=== PATIENT | female | born 1945 | race Hispanic/Latino ===

== ENCOUNTER 2017-05-09 07:32 | Day surgery (SDC) | payer MEDICARE, OTHER ==
[2017-05-09 08:00] VITALS: BMI 25.6
[2017-05-09] MEDS ORDERED: Propofol 10 mg/ml Inj (20 ML) ONE (09:35)
--- NOTE | 2017-05-09 09:35 | CP.SDSHP ---
Same Day Surgery H & P - History Proposed Procedure: EGD Pre-Op Diagnosis: SEE NOTES - Previous Medical/Surgical History Endocrine/Metabolic: Thyroid Disease Misc: Other Pain: 4.Moderate Pain - Allergies Allergies: Allergies codeine Allergy (Verified 05/09/17 07:59) NAUSEA - Physical Exam General Appearance: N Vital Signs: Vital Signs 05/09/17 05/09/17 08:00 09:33 Temperature 97.2 F L 97.2 F L Pulse Rate 72 72 Respiratory 20 20 Rate Blood Pressure 149/78 149/78 O2 Sat by Pulse 96 96 Oximetry Mental Status: Alert & Oriented x3 Neuro: WNL Heart: WNL Lungs: WNL GI: Other - {Optional Preform as Required} Breast: WNL Abdomen: Other Rectal: Other Integument: WNL : WNL Ortho: Other ENT: WNL - Impression Pt. Evaluated Today:Candidate for Anesthesia & Procedure: Yes - Date & Time Time: 09:35 Short Stay Discharge - Short Stay Discharge Admitting Diagnosis/Reason for Visit: FUNCTIONAL DYSPEPSIA Disposition: HOME/ ROUTINE
[2017-05-09] MEDS ORDERED: Midazolam 2 MG/2 ML VIAL ONE (09:36)
[2017-05-09] MEDS ORDERED: Lactated Ringer's 500 ML IV SCH (09:45)
[2017-05-09] MEDS ORDERED: Belladonna-Phenobarbital PO ONE (09:50)
[2017-05-09] MEDS ORDERED: Pantoprazole 40 mg EC Tab PO ONE (09:55)
[2017-05-09 09:59] VITALS: RESP 12; TEMP 97.8
[2017-05-09 11:04] VITALS: BP 137/68; PULSE 56; O2SAT 97
== END 2017-05-09 11:02 | disposition home or self-care (01) ==
LOC: C.ENDO 07:32
PROVIDERS: ATTEND Specialist
DX: K21.0 Gastro-esophageal reflux disease with esophagitis (principal); K44.9 Diaphragmatic hernia without obstruction or gangrene
CPT/HCPCS: 43239; 88305; 88342; J2250; J2704; J7120

== ENCOUNTER 2018-07-27 09:52 | Day surgery (SDC) | payer MEDICARE, OTHER ==
[2018-07-27 10:30] VITALS: BMI 27.8
--- NOTE | 2018-07-27 11:05 | CP.SDSHP ---
Same Day Surgery H & P - History Proposed Procedure: EGD Pre-Op Diagnosis: SEE NOTES - Previous Medical/Surgical History Misc: Other Pain: 4.Moderate Pain - Allergies Allergies: Allergies codeine Allergy (Verified 07/27/18 10:30) NAUSEA - Physical Exam General Appearance: N Vital Signs: Vital Signs 07/27/18 10:15 Temperature 97.9 F Pulse Rate 80 Respiratory 20 Rate Blood Pressure 155/77 H O2 Sat by Pulse 98 Oximetry Mental Status: Alert & Oriented x3 Neuro: WNL Heart: WNL Lungs: WNL GI: Other - {Optional Preform as Required} Breast: WNL Abdomen: Other Rectal: Other Integument: WNL : WNL Ortho: Other ENT: WNL - Impression Pt. Evaluated Today:Candidate for Anesthesia & Procedure: Yes - Date & Time Time: 11:05 Short Stay Discharge - Short Stay Discharge Admitting Diagnosis/Reason for Visit: UNSPECIFIED ABDOMINAL PAIN Disposition: HOME/ ROUTINE
[2018-07-27] MEDS ORDERED: Propofol 10 mg/ml Inj (20 ML) ONE (11:10)
[2018-07-27] MEDS ORDERED: Belladonna-Phenobarbital PO STA (11:47)
[2018-07-27] MEDS ORDERED: Pantoprazole 40 mg EC Tab PO STA (11:47)
[2018-07-27 11:48] VITALS: TEMP 97.7
[2018-07-27 12:15] VITALS: PULSE 60
[2018-07-27 12:16] VITALS: BP 118/67; RESP 11; O2SAT 95
== END 2018-07-27 12:35 | disposition home or self-care (01) ==
LOC: C.ENDO 09:52
PROVIDERS: ATTEND Specialist
DX: R10.9 Unspecified abdominal pain (principal); K30 Functional dyspepsia; K44.9 Diaphragmatic hernia without obstruction or gangrene; K29.70 Gastritis, unspecified, without bleeding
CPT/HCPCS: 43239; 88305; J2704